=== PATIENT | female | born 1975 | race Caucasian/White ===

== ENCOUNTER 2020-09-23 12:10 | Outpatient (CLI) | payer OTHER, SELFPAY ==
--- NOTE | ~2020-09-23 | MM_ITS ---
EXAMINATION: MM screening segundo BI w jacinto HISTORY: Screening TECHNIQUE: Craniocaudal and mediolateral oblique 3-D tomosynthesis images were obtained and synthetic 2-D images were generated. CAD analysis was submitted and interpreted. COMPARISON: No prior studies for comparison. BREAST PARENCHYMAL COMPOSITION: There are scattered areas of fibroglandular density. FINDINGS: There is no evidence of suspicious mass, calcification, or architectural distortion to sugg est malignancy in either breast. There has been no suspicious interval change. IMPRESSION: 1. No mammographic evidence of malignancy. 2. Recommend routine screening mammography in one year. BI-RADS Category 1: Negative Reviewed, dictated and finalized at location A. 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
== END 2020-09-23 12:11 | disposition home or self-care (01) ==
LOC: ANHIMG 12:13
PROVIDERS: PCP Emergency Medicine; Visit Provider Emergency Medicine
DX: Z12.31 Encounter for screening mammogram for malignant neoplasm of breast (principal)
CPT/HCPCS: 77063; 77067

== ENCOUNTER 2021-06-18 13:15 | Outpatient (CLI) | payer OTHER, SELFPAY ==
--- NOTE | ~2021-06-18 | MMUS_ITS ---
EXAMINATION: MM diagnostic segundo LT w jacinto, US breast LT complete HISTORY: Left breast lump TECHNIQUE: Full field and spot 3-D tomosynthesis images of the left breast were performed and synthet ic 2-D images were generated. CAD analysis was submitted and interpreted. High resolution complete le ft breast ultrasound was performed. COMPARISON: 09/2020 bilateral digital screening mammogram BREAST PARENCHYMAL COMPOSITION: There are scattered areas of fibroglandular density. FINDINGS: MAMMOGRAPHIC FINDINGS: No suspicious mass, architectural distortion, malignant calcification, skin thickening or retraction of the left breast is evident. ULTRASOUND: 3:00 2 cm from nipple: 4.3 x 3.1 x 3.4 mm cyst No suspicious mass or shadowing of the left breast is detected. IMPRESSION: 1. No mammographic evidence of malignancy 2. Routine mammographic screening is recommended. BI-RADS Category 2: Benign finding(s). Reviewed, dictated and finalized at location A. IMPRESSION: 1. No mammographic evidence of malignancy 2. Routine mammographic screening is recommended. BI-RADS Category 2: Benign finding(s).
== END 2021-06-18 13:16 | disposition home or self-care (01) ==
LOC: ANHIMG 13:16
PROVIDERS: PCP Emergency Medicine; Visit Provider Emergency Medicine
DX: N63.20 Unspecified lump in the left breast, unspecified quadrant (principal)
CPT/HCPCS: 76641; 77061; 77065; G0279

== ENCOUNTER 2022-09-20 15:30 | Outpatient (CLI) | payer OTHER, SELFPAY ==
--- NOTE | ~2022-09-20 | MM_ITS ---
EXAMINATION: MM screening segundo BI w jacinto HISTORY: Screening TECHNIQUE: Craniocaudal and mediolateral oblique 3-D tomosynthesis images were obtained and synthetic 2-D images were generated. CAD analysis was submitted and interpreted. COMPARISON: 09/23/2020 BREAST PARENCHYMAL COMPOSITION: Breast composed of scattered areas of fibroglandular density FINDINGS: There is no evidence of suspicious mass, calcification, or architectural distortion to sugg est malignancy in either breast. There has been no suspicious interval change. IMPRESSION: 1. No mammographic evidence of malignancy. 2. Recommend routine screening mammography in one year. BI-RADS Category 1: Negative Reviewed, dictated and finalized at location A.
== END 2022-09-20 15:31 | disposition home or self-care (01) ==
PROVIDERS: PCP Emergency Medicine; Visit Provider Emergency Medicine
DX: Z12.31 Encounter for screening mammogram for malignant neoplasm of breast (principal)
CPT/HCPCS: 77063; 77067

== ENCOUNTER 2023-03-24 03:32 | Day surgery (SDC) | payer OTHER, SELFPAY ==
[2023-03-17 12:14] VITALS: BMI 46.8
--- NOTE | 2023-03-17 12:18 | PC.NURSE ---
Report to the Outpatient Waiting Room, entrance under the green pavilion located off [facility], at time 0615 on date 03/24/23. Planned Procedure Time: 0815. Time changes happen often and if your time is changed the preop area will call you the afternoon before. - You and your visitor will be asked to self-screen and do not enter if you have any COVID symptoms. - A mask is optional within the hospital at this time. Patients may have clear liquids (water, carbonated beverages, clear teas, apple juice) until 3 hours prior to surgery with a maximum of 20 ounces. - No food from midnight until time of surgery Take the following medications with a SIP of water the morning of surgery: NONE DO NOT STOP ANY OF YOUR OTHER PRESCRIPTION MEDICATIONS PRIOR TO SURGERY ?EXCEPT THE FOLLOWING Medications to discontinue per physician: VITAMINS/SUPPLEMENTS Date to take last dose: 03/20/23 Please no make-up, nail honduran, hairspray, perfume, deodorant, or body powder the day of surgery. No jewelry (including any body piercings) or valuables the day of surgery, leave them at home. Please take a shower or bath the night before, or the morning of, surgery with an antibacterial soap. Wear comfortable, loose fitting clothing. - Jewelry must be removed prior to entering the operating room. Rings and piercings that are not removed may be cut off. - The hospital will not accept responsibility for valuables. - Please leave all valuables, including medications, at home the day of surgery. If you are going home after surgery, a licensed driver education instructor must drive you home. - NO public transportation without another adult if you receive anesthesia. - We recommend that an adult stay with you for 24 hours following discharge. - We also recommend that you do not drive, make important decision, drink alcoholic beverages, or take any drugs that were not prescribed by your health care provider for at least 24 hours after your discharge time. Follow any additional instructions given to you from your surgeon. If you or anyone in your household have experienced Covid symptoms in the past week, please notify your surgeon or the nurse liaison at the phone number below for possible testing. Telephone instructions given to PT - ANDREW THOMASON and asked if any additional questions and then verbalized understanding. Patient advised to call surgeon office or pre surgery nurse liaison [phone] if any additional questions.
--- NOTE | 2023-03-22 05:07 | PM.IMHP ---
H&P: HPI History of Present Illness Date/Time: 03/22/23 05:07 Chief Complaint: Neel Narrative: 47 yo NEEL on uro and by history Review of Systems Review of Systems: All systems reviewed & are unremarkable except as noted in HPI and below PMFSH Past Medical History Medical History (Updated 03/22/23 @ 05:08 by Hermilo Abad MD) Depression Social History Social History Smoking status: Never smoker Alcohol intake: current Drinks per week: 2 Substance use: never Substance use type: does not use Living arrangements: with family Spiritual care concerns: No Meds Home Medications and Allergies Home Medications Medication Instructions Recorded Confirmed Type zolmitriptan 2.5 mg tablet See Rx Instructions .Route 09/12/22 03/17/23 Rx .COMPLEX #30 tabs citalopram 20 mg tablet See Rx Instructions .Route 12/26/22 03/17/23 Rx .COMPLEX #90 tabs glucosamine 750 ez-gfvxufhsana-hxq 1 tablet PO DAILY 03/17/23 03/17/23 History no1 644 mg-C 30 mg-dane 1 mg tablet (Osteo Bi-Flex Triple Strength) loratadine 10 mg tablet (Claritin) 10 mg PO HS 03/17/23 03/17/23 History Allergies Allergy/AdvReac Type Severity Reaction Status Date / Time Sulfa (Sulfonamide Allergy Unknown Hives Verified 03/17/23 12:13 Antibiotics) Exam Narrative: NAD Normal brething A+O x3 + urehtral mobility Assessment and Plan Assessment and plan (1) NEEL (stress urinary incontinence, female): Code(s): N39.3 - Stress incontinence (female) (male) Status: Acute Assessment and Plan: urethral sling. risks, benifits, alternaitives discussed
--- NOTE | 2023-03-23 14:03 | P.PNAN_ITS ---
Anes - Initial Pre Proc Eval Procedure: Operation Date: 03/24/23 08:15 Proposed Procedures p Urethral Sling - Hermilo Abad MD Date/Time: 03/23/23 14:03 Surgeon: Hermilo Abad MD Pre Op Diagnosis: stress incontinence Patient Data Age: 47 Gender: F Height: 1.55 m Weight: 112.5 kg Allergies Allergy/AdvReac Type Severity Reaction Status Date / Time Sulfa (Sulfonamide Allergy Unknown Hives Verified 03/17/23 12:13 Antibiotics) Home Medications Medication Instructions Recorded Confirmed Type zolmitriptan 2.5 mg tablet See Rx Instructions .Route 09/12/22 03/17/23 Rx .COMPLEX #30 tabs citalopram 20 mg tablet See Rx Instructions .Route 12/26/22 03/17/23 Rx .COMPLEX #90 tabs glucosamine 750 zf-favkuoyvygp-lmw 1 tablet PO DAILY 03/17/23 03/17/23 History no1 644 mg-C 30 mg-dane 1 mg tablet (Osteo Bi-Flex Triple Strength) loratadine 10 mg tablet (Claritin) 10 mg PO HS 03/17/23 03/17/23 History Patient hx anesthesia problems: none Family hx anesthesia problems: none Results Review: All pre-operative results and documents have been reviewed as part of the pre- operative evaluation. [facility] Past Medical History Medical History (Updated 03/23/23 @ 14:04 by Wyatt Membreno MD) Depression Morbid obesity with BMI of 40.0-44.9, adult NEEL (stress urinary incontinence, female) Social History Social History Smoking status: Never smoker Alcohol intake: current Drinks per week: 2 Substance use: never Substance use type: does not use Living arrangements: with family Spiritual care concerns: No Anes - Eval Final PreProcedure Day of Procedure 03/23/23 14:03 Patient weight: morbidly obese Heart: regular rate and rhythm Lungs: clear to auscultation and normal air movement Airway: Mallampati scale class II Neurological: alert and oriented Last oral intake: >/= 8 hours ASA classification: III Emergent: no Anesthetic plan: proceed Anesthesia type and monitoring: general GIVS and LMA Results Review: All pre-operative results and documents have been reviewed as part of the pre- operative evaluation. Informed Consent: The patient's anesthetic plan and its attendant risks and benefits were discussed with the patient/family/POA. Questions were solicited and answers provided to the satisfaction of the patient/family/POA.
[2023-03-24 06:40] VITALS: BP 140/94; PULSE 84; RESP 16; TEMP 36.4; O2SAT 96
[2023-03-24] MEDS: LACTATED RINGERS 1,000 ML 30 ML IV CONT (06:55)
--- NOTE | 2023-03-24 07:15 | WPDHPUPDATE1 ---
History and Physical Update Update Date/Time: 03/24/23 07:15 History and Physical has been reviewed, including an updated exam of the patient. There are NO changes in the patient's condition. Risks, benefits, and alternatives have been discussed and questions answered. Patient agrees to proceed with procedure.
[2023-03-24] MEDS: ceFAZolin 2 GM/D5W 50 ML 2 GM/50 ML BAG IVPB (08:14)
[2023-03-24] MEDS: KETOROLAC 30 MG/ML VIAL (*BKC) IV PUSH (08:14)
[2023-03-24] MEDS: BUPIVACAINE/EPINEPHRINE 0.25% 50 ML VIAL 10 ML INFILTRATE (08:37)
[2023-03-24 09:03] VITALS: BP 121/58; PULSE 71; RESP 16; O2SAT 95
--- NOTE | 2023-03-24 09:14 | W.PM.PROC2 ---
Procedure Note - Detailed Date of Procedure 03/24/23 Pre-op Diagnosis stress incontinence Post-op Diagnosis Same Procedure Performed mid urethral sling cystoscopy Surgeon Hermilo Abad MD Anesthesia MAC and Local Indications This is a female with confirm stress urinary incontinence. She desires surgical correction. She understands the risks of bleeding, infection, injury to the urinary tract, vaginal mesh extrusion, urinary tract mesh erosion, obstructive voiding requiring a secondary procedure, hip and leg pain, dyspareunia, inability to improve overactive bladder symptoms. She agrees to proceed. Of note there is a small increased risk of failure and complications due to her body habitus Description of Procedure She was correctly identified. Informed consent obtained. She was brought the operating room. She was given appropriate anesthesia. She was given appropriate perioperative antibiotics. A time-out performed. I marked out the site of the inner thigh incisions. I anesthetized the skin and made those incisions. I anesthetized the anterior vaginal wall over the mid urethra. I made a 1 cm incision. I dissected out laterally taking great care not to injure the refilled vaginal wall. I passed the helical trocars. First on the left. Then on the right. I did this from the thigh incision towards the vaginal incision. The sling was connected to the trocars and brought out through the thigh incision. I tensioned the sling appropriately. I cut and the plastic sheaths. I then closed the incision with 2 0 Vicryl. On cystoscopy there is no tumors or surgical artifact. There was no surgical artifact in the urethra. I cut the excess sling material. Close incisions with glue. She was awakened and transferred to the PACU in stable condition. Implants Urethral sling Drains No Packing No Pathology None sent Complications No immediate complications Condition Stable Disposition PACU
[2023-03-24 09:30] VITALS: BP 128/64; PULSE 63; O2SAT 98
[2023-03-24 10:00] VITALS: BP 132/76; PULSE 65
[2023-03-24 10:20] VITALS: BP 126/66; PULSE 64
== END 2023-03-24 10:31 | disposition home or self-care (01) ==
PROVIDERS: PCP Emergency Medicine; Visit Provider Urology
PROC: (CPT 57288; principal; 2023-03-24 08:15)
DX: N39.3 Stress incontinence (female) (male) (principal); F32.A Depression, unspecified; E66.01 Morbid (severe) obesity due to excess calories; Z68.42 Body mass index [BMI] 45.0-49.9, adult
CPT/HCPCS: 57288; C1771; J0131; J0690; J1100; J1885; J2250; J2405; J2704; J3010; J7030; J7120

== ENCOUNTER 2023-12-07 15:34 | Outpatient (CLI) | payer OTHER, SELFPAY ==
--- NOTE | ~2023-12-07 | MM_ITS ---
EXAMINATION: MM screening segundo BI w jacinto HISTORY: Screening TECHNIQUE: Craniocaudal and mediolateral oblique 3-D tomosynthesis images were obtained and synthetic 2-D images were generated. CAD analysis was submitted and interpreted. COMPARISON: Comparison to multiple prior studies sequentially, with oldest reviewed study dated 02/2020. BREAST PARENCHYMAL COMPOSITION: Breast composed of scattered areas of fibroglandular density FINDINGS: There are left periareolar asymmetries. The right breast is stable without evidence for mal ignancy. IMPRESSION: 1. Left periareolar asymmetries. 2. Additional mammographic views and possible breast ultrasound are recommended. BI-RADS Category 0: Incomplete: Needs additional imaging evaluation. Reviewed, dictated and finalized at location A. 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 Left periareolar asymmetries. 2. Additional mammographic views and possible breast ultrasound are recommended . BI-RADS Category 0: Incomplete: Needs additional imaging evaluation.
== END 2023-12-07 15:35 | disposition home or self-care (01) ==
PROVIDERS: PCP Emergency Medicine; Visit Provider Nurse Practitioner
DX: Z12.31 Encounter for screening mammogram for malignant neoplasm of breast (principal); R92.8 Other abnormal and inconclusive findings on diagnostic imaging of breast
CPT/HCPCS: 77063; 77067

== ENCOUNTER 2024-02-19 10:58 | Outpatient (CLI) | payer OTHER, SELFPAY ==
--- NOTE | ~2024-02-19 | MMUS_ITS ---
EXAMINATION: MM diagnostic segundo LT w jacinto, US breast LT limited HISTORY: Follow-up left breast asymmetry TECHNIQUE: Additional 3-D tomosynthesis images of the left breast were performed and synthetic 2-D im ages were generated. CAD analysis was submitted and interpreted. High resolution Limited left breast ultrasound was performed. COMPARISON: Comparison to multiple prior studies sequentially, with oldest reviewed study dated 02/2020. BREAST PARENCHYMAL COMPOSITION: Not dense: There are scattered areas of fibroglandular density. FINDINGS: MAMMOGRAPHIC FINDINGS: There are no suspicious masses, calcifications or architectural distortion in the left breast to sugg est malignancy. Left breast asymmetry is less apparent with spot compression and mediolateral views. ULTRASOUND: Limited left breast ultrasound: At 11:00, 2 cm from the nipple, there is a minimally complicated 3 mm cyst, likely corresponding to the previously identified asymmetry. No suspicious masses to suggest m alignancy. IMPRESSION: 1. No evidence for malignancy in the left breast. Benign finding. 2. Routine yearly screening mammogram and regular clinical breast examination are recommended. BI-RADS Category 2: Benign finding(s). Reviewed, dictated and finalized at location A. IMPRESSION: 1. No evidence for malignancy in the left breast. Benign finding. 2. Routine yearly screening mammogram and regular clinical breast examination a re recommended. BI-RADS Category 2: Benign finding(s).
== END 2024-02-19 10:59 | disposition home or self-care (01) ==
PROVIDERS: PCP Emergency Medicine; Visit Provider Nurse Practitioner
DX: R92.2 Inconclusive mammogram (principal)
CPT/HCPCS: 76642; 77061; 77065; G0279

== ENCOUNTER 2025-04-07 15:05 | Outpatient (CLI) | payer OTHER, SELFPAY ==
--- NOTE | ~2025-04-07 | MM_ITS ---
EXAMINATION: MM screening segundo BI w jacinto HISTORY: Screening TECHNIQUE: Craniocaudal and mediolateral oblique 3-D tomosynthesis images were obtained and synthetic 2-D images were generated. CAD analysis was submitted and interpreted. COMPARISON: Comparison to multiple prior studies sequentially, with oldest reviewed study dated 02/2020. BREAST PARENCHYMAL COMPOSITION: Not dense: There are scattered areas of fibroglandular density. FINDINGS: There is no evidence of suspicious mass, calcification, or architectural distortion to sugg est malignancy in either breast. There has been no suspicious interval change. IMPRESSION: 1. No mammographic evidence of malignancy. 2. Recommend routine screening mammography in one year. BI-RADS Category 1: Negative Reviewed, dictated and finalized at location B.
--- OUTSIDE RECORDS SUMMARY | 2025-04-07 15:09 | XMS_ITS | Referral Summary ---
Author Organization [address] Address [address] [place] [id number] Care Team Providers Care Home Care Physical Therapist Name Role Phone Unknown, Notinfile Primary Care Provider Unavail able Encounters Date Type Department Care Team Description 03/04/2025 4:37 PM CDT - 03/04/2025 11:59 PM CDT Hospital Encounter [facility] ([facility]) [address] [place] [id number] Discharge Disposition: Discharge to home or self care 03/04/2025 4:36 PM CDT - 03/04/2025 11:59 PM CDT Hospital Encounter [facility] ([facility]) [address] [place] [id number] Discharge Disposition: Discharge to home or self care 03/04/2025 4:30 PM CDT - 03/04/2025 11:59 PM CDT Hospital Encounter [facility] ([facility]) [address] [place] [id number] Discharge Disposition: Discharge to home or self care 03/04/2025 11:15 AM CDT Ancillary Procedure [facility] [address] [place] [address] [address] [place] [phone] Chronic right shoulder pain 03/04/2025 10:40 AM CDT Office Visit [facility] [address] [place] [address] [address] [place] [phone] Charis Cody MD Chronic right shoulder pain (Primary Dx); Tendinopathy of right rotator cuff from Last 3 Months Allergies Active Allergy Reactions Criticality Noted Date Comments Sulfa (Sulfonamide Antibiotics) Urticaria Medium 10/20 Medications citalopram (CeleXA) 20 mg tablet Take 1 tablet (20 mg total) by mouth nightly Active ZOLMitriptan (ZOMIG) 2.5 mg tablet 08/22/2019 Active cetirizine (ZyrTEC) 10 mg tablet Take 1 tablet (10 mg total) by mouth nightly Active Active Problems No known active problems Social History Tobacco Use Types Packs/Day Years Used Date Smoking Tobacco: Never Passive Smoke Exposure: Past Smokeless Tobacco: Never Tobacco Cessation:Counseling Given: Not Answered Comments Unknown Sex and Gender Information Value Date Recorded Sex Assigned at Not on file Legal Sex Female 11:33 AM CDT Gender Identity Female 02/28/2025 12:09 PM CDT Sexual Orientation Straight 02/28/2025 12 :09 PM CDT Last Filed Vital Signs Vital Sign Reading Time Taken Comments Blood Pressure 119/79 06/16/2024 6:06 PM CDT Pulse 76 06/16/2024 6:06 PM CDT Temperature 36.9 C (98.5 F) 06/16/2024 6:06 PM CDT Respiratory Rate 20 06/16/2024 6:06 PM CDT Oxygen Saturation 98% 06/16/2024 6:06 PM CDT Inhaled Oxygen Concentration - - Weight 83.1 kg (183 lb 4.8 oz) 06/16/2024 6:06 P M CDT Height 165.1 cm (5' 5 ) 06/16/2024 6:06 PM CDT Body Mass Index 30.5 06/16/2024 6:06 PM CDT Plan of Treatment Not on file Procedures Procedure Name Priority Date/Time Associated Diagnosis Comments XR TRANSFER OF OUTSIDE FILMS Routine 03/04/2025 4:37 PM CDT IR OUTSIDE REFERENCE Routine 03/04/2025 4:36 PM CDT MSK MR OUTSIDE REFERENCE Routine 03/04/2025 4:30 PM CDT POCUS LIMITED EXTREMITY Schedule Routine, Read Routine (OP Routine) 03/04/2025 11:12 AM CDT Chronic right shoulder pain from Last 3 Months Results * XR Outside Reference (03/04/2025 4:37 PM CDT) Impressions RAD_PACS[facility] - 03/04/2025 4:37 PM CDT These images are for Reference purposes only and have not been reviewed by [facility]. There will be no report generated by a [facility] Radiologist. Narrative [facility]_PACS[facility] - 03/04/2025 4:37 PM CDT EXAMINATION: Images For Reference Purposes Only us Charis Cody MD IMG XR PROCEDURES Final Result Performing Organization Address [facility] de Phone Number [email or web address] * IR Outside Reference (03/04/2025 4:36 PM CDT) Impressions RAD_PACS[facility] - 03/04/2025 4:36 PM CDT These images are for Reference purposes only and have not been reviewed by [facility]. There will be no report generated by a [facility] Radiologist. Narrative RAD_PACS_[facility] - 03/04/2025 4:36 PM CDT EXAMINATION: Images For Reference Purposes Only us Charis Cody MD IMG IR PROCEDURES Final Result Performing Organization Address [facility] de Phone Number RAD_[email or web address] * MSK MR Outside Reference (03/04/2025 4:30 PM CDT) Impressions RAD_PACS[facility] - 03/04/2025 4:30 PM CDT These images are for Reference purposes only and have not been reviewed by [facility]. There will be no report generated by a [facility] Radiologist. Narrative RAD_PACS_[facility] - 03/04/2025 4:30 PM CDT EXAMINATION: Images For Reference Purposes Only us Charis Cody MD IMG MRI PROCEDURES Final Result Performing Organization Address City/[facility]/ZIP Co de Phone Number [facility] * POCUS LIMITED EXTREMITY (03/04/2025 11:12 AM CDT) Narrative [facility]ACS_[facility] - 03/04/2025 11:12 AM CDT This procedure was performed and interpreted by the provider. Please refer to the provider's procedure/OR operative note for results. us Mariam Perez MD POCUS ORDERABLES Sowmya l Result Performing Organization Address [facility] Co de Phone Number RAD_PACS_P[facility]US[facility] from Last 3 Months Insurance [employer] OPEN ACCESS [employer] ACCESS Care Teams Home Care Physical Therapist Relationship Specialty Start Date End Date Unknown, Notinfile PCP - General 06/16/24
--- OUTSIDE RECORDS SUMMARY | 2025-04-07 15:09 | XMS_ITS | Clinical Summary ---
Author Organization [facility] MessageMe Address [address] [facility] [place] [address] Care Team Providers Care Weight Reduction Specialist Name Role Phone Dat Bran MD Primary Care Provider [phone] Yuliet Flores MD Unavailable [phone] Source Comments [facility],non-owned Affiliates and Associated Physician Practices is amultiple site organization consisting of ambulatory clinics and hospital sitesin [place], [place], [place] and [place]. This disclosure is being madepursuant to the Care Everywhere program and may not contain all information available regarding this patient. Last updated 18.[facility] MessageMe Allergies Active Allergy Reactions Criticality Noted Date Comments Sulfa Drugs Urticaria Medium 10/30/2019 Medications * Be aware that medications may not be up to date on this document. Alwaysverify current medications with the patient. ZOLMitriptan (ZOMIG) 2.5 MG tablet Take 1 (one) tablet by mouth once as needed for Migraine 1 9 Active citalopram (CELEXA) 20 MG tablet Take 1 (one) tablet by mouth at bedtime Active albuterol HFA (PROVENTIL; VENTOLIN; PROAIR) 108 (90 Base) MCG/ACT inhalerIndicatio ns:Acute bronchitis, unspecified organism Inhale 2 (two) puffs by mouth every 6 hours as needed for Wheezing or Cough 1 g 1 Active Additional Information Patient not taking.Reported on 06/28/2024 cetirizine (ZyrTEC) 10 MG tablet Take 1 (one) tablet by mouth at bedtime Active minoxidil (Loniten) 2.5 MG tablet Take 0.5 (one-half) tablet by mouth once daily 4 Active Active Problems Problem Noted Date Diagnosed Date S/P laparoscopic sleeve gastrectomy 06/26/2023 Social History Tobacco Use Types Packs/Day Years Used Date Smoking Tobacco: Never Smokeless Tobacco: Never Tobacco Cessation:Counseling Given: Not Answered Alcohol Use Standard Drinks/Week Comments Yes 4 (1 standard drink = 0.6 oz pur e alcohol) socially AUDIT-C Answer Date Recorded Q1: How often do you have a drink containing alc ohol? Monthly or less 06/26/2023 Q2: How many drinks containi ng alcohol do you have on a typical day when you are drinking? 1 or 2 06/26/2023 Q3: How often do you have si x or more drinks on one occasion? Never 06/26/2023 Overall Financial Resource Strain (CARDIA) Answe r Date Recorded How hard is it for you to pa y for the very basics like food, housing, medical care, and heating? Not hard at all 06/26/2023 [facility] - Occupational Stress Questionnaire Answer Date Recorded Do you feel stress - tense, restless, nervous, or anxious, or unable to sleep at night because your mind is troubled all the time - these days? Not at all 06/26/2023 Hunger Vital Sign Answer Date Recorded Within the past 12 months, y ou worried that your food would run out before you got the money to buy more. Never true 06/26/20 23 Within the past 12 months, t he food you bought just didn't last and you didn't have money to get more. Never true 06/26/2023 PRAPARE - Transportation Answer Date Re corded In the past 12 months, has l ack of transportation kept you from medical appointments or from getting medications? No 05/2023 In the past 12 months, has l ack of transportation kept you from meetings, work, or from getting things needed for daily living? No 06/26/2023 Housing Stability Vital Sign Answer Eddie e Recorded In the last 12 months, was t here a time when you were not able to pay the mortgage or rent on time? No 06/26/2023 In the last 12 months, how many places have you lived? 1 06/26/2023 In the last 12 months, was t here a time when you did not have a steady place to sleep or slept in a alf (including now)? No 06/26/2023 Comments No Sex and Gender Information Value Date Recorded Sex Assigned at Female 02/26/2021 10:24 AM CDT Legal Sex Female 8:08 AM FITNESS PLAN COORDINATOR Gender Identity Female 02/26/2021 10:24 AM CDT Sexual Orientation Not on file Last Filed Vital Signs Vital Sign Reading Time Taken Comments Blood Pressure 109/74 06/28/2024 11:25 AM CDT Pulse 73 06/28/2024 11:25 AM CDT Temperature 36 C (96.8 F) 06/28/2024 11:25 AM CDT Respiratory Rate 14 06/28/2024 11:25 AM CDT Oxygen Saturation 99% 06/28/2024 11:25 AM CDT Inhaled Oxygen Concentration - - Weight 84.4 kg (186 lb) 06/28/2024 11:25 AM CDT Height 154.9 cm (5' 0.98 ) 06/28/2024 11:25 AM C DT Body Mass Index 35.17 06/28/2024 11:25 AM CDT Plan of Treatment Upcoming Encounters Date Type Department Care Team (Late st Contact Info) Description 06/27/2025 11:30 AM CDT Office Visit [facility] [address] [facility] [address] [place] [address] Lorrie Delaney, SENIOR TEST ANALYST-MARBLE INSTALLER [address] [facility] [address] [place] [address] Health Maintenance Due Date Last Done Comments COLOGUARD (AGES 45-75) - COLON CA SCREENING 1974 COLON MONITORING 1974 COLONOSCOPY - COLON CA SCREENING 1974 CT COLONOGRAPHY - COLON CA SCREENING 1974 Colorectal Cancer Screening 1974 FIT - COLON CA SCREENING 1974 FLEX SIG - COLON CA SCREENING 1974 LIPID TESTING 1974 MAMMOGRAM 1974 HIV SCREENING 1989 HEPATITIS C SCREENING 11/03/1992 DTAP/TDAP/TD VACCINES (1 - Tdap) 1993 HEPATITIS B VACCINE (1 of 3 - 19+ 3-dose series) 1993 COVID-19 VACCINE (3 - 2023- season) 2024 04/12/2021, 03/22/2021 PNEUMOCOCCAL VACCINE 50+ (1 of 1 - PCV) 2024 ZOSTER VACCINE (1 of 2) 2024 DEPRESSION SCREENING 11/20/2024 INFLUENZA VACCINE (Season Ended) 2025 10/08/2020 (Done Outside Per Patient), 08/20/2017 PAP SMEAR 10/17/2026 10/17/2023, 01/22/2021 SCREENING FOR DIABETES 06/25/2027 , 06/27/2023, 06/26/2023, Additional history exists HIB VACCINE Aged Out No longer eligi ble based on patient's age to complete this topic HPV VACCINE Aged Out No longer eligi ble based on patient's age to complete this topic MENINGOCOCCAL (Group B) VACCINE SHARED DECISION-MAKING Aged Out No longer eligible based on patient's age to complete this topic MENINGOCOCCAL GROUPS A/C/Y/W VACCINE Aged Out No longer eligible based on patient's age to complete this topic Procedures Procedure Name Priority Date/Time Associated Diagnosis Comments COMPREHENSIVE METABOLIC PANEL Routine 06/25/2024 9:30 AM CDT Morbid obesity Bariatric surgery status Vitamin deficiency Vitamin D deficiency from Last 3 Months or Most Recently Relevant to Health Maintenance Results * COMPREHENSIVE METABOLIC PANEL (06/25/2024 9:30 AM CDT) Glucose 91 70 - 99 mg/dL [facility] INSURANCE BILL BUN 19 6 - 24 mg/dL [facility] INSURANCE BILL Creatinine 0.86 0.57 - 1.00 mg/dL [facility] INSURANCE BILL eGFR by CKD-EPI 83 >59 mL/min/1.7 3 [facility] INSURANCE BILL BUN/Creatinine Ratio 22 9 - 23 [facility] INSURANCE BILL Sodium 139 134 - 144 mmol/L [facility] INSURANCE BILL Potassium 4.5 3.5 - 5.2 mmol/L [facility] INSURANCE BILL Chloride 103 96 - 106 mmol/L [facility] INSURANCE BILL CO2 25 20 - 29 mmol/L [facility] INSURANCE BILL Calcium 9.6 8.7 - 10.2 mg/dL [facility] INSURANCE BILL Protein Total 6.5 6.0 - 8.5 g/dL [facility] INSURANCE BILL Albumin 3.9 3.9 - 4.9 g/dL [facility] INSURANCE BILL Globulin Total 2.6 1.5 - 4.5 g/dL [facility] INSURANCE BILL Bilirubin Total 0.3 0.0 - 1.2 mg/dL [facility] INSURANCE BILL Alkaline Phosphatase 101 44 - 121 IU/L [facility] INSURANCE BILL AST 23 0 - 40 IU/L [facility] INSURANCE BILL ALT 19 0 - 32 IU/L [facility] INSURANCE BILL Comment:FASTING Blood BLOOD SPECIMEN / Unknown 06/25/2024 9:30 AM CDT 06/25/2024 Narrative Resulting Agency Comment Lab Testing performed at: [facility] [address] [facility] [id number] Micheline Marroquin SENIOR TEST ANALYST-MARBLE INSTALLER LAB - CHEMISTRY NELY MORAN Final Result [facility] INSURANCE BILL [address] [place] [address] from Last 3 Months or Most Recently Relevant to Health Maintenance Insurance [facility] Advance Directives * Full Code (Latest Code Status on File) Date Activated Date Inactivated Comments 06/26/2023 2:00 PM 06/27/2023 3:50 PM Care Teams Weight Reduction Specialist Relationship Specialty Start Date End Date Dat Bran MD [facility] [address] [place] [address] PCP - General Internal Medicine 10/30/19 [place] [address] [address] [facility] [address] [place] [address] Orthopedic Surgery 10/30/19
--- OUTSIDE RECORDS SUMMARY | 2025-04-07 15:09 | XMS_ITS | Data Portability ---
Author Organization [place] - [facility], Telehealth Address [address], [place] [address] Assessment Encounter Date Assessment Date Assessment LastModified by Organization Details LastModified Time 10/04/2016 10/04/2016 right plantar fasciitis -for the next 6-8 weeks -ice twice a day for 15 minutes -stretch the back of the legs twice a day for a minute on each side. Do this for the rest of your life -wearing a rigid bottomed shoe (jaciel, birkenstock, dansko) -getting a super feet short insert for your boots -no barefoot (go shopping!!!) -roll the foot over a ball if you have extra time -rate your pain in 6 weeks and return if no improvement [email or web address] Not available 10/05/2016 02:06:33 Plan of Treatment Reminders Order Date Submit Date Provider Last Modified By Organization Details Last Modified Time Details Appointments None record ed. Lab None record ed. Referral None record ed. Procedures None record ed. Surgeries None record ed. Imaging None record ed. Medication Orders None record ed. Patient TargetsNo targets recorded. Patient Instructions Encounter Date Encounter Id Patient Instructions Last Modified By Organization Details Last Modified Time 10/04/2016 [id number] -for the next 6- 8 weeks -ice twice a day for 15 minutes -stretch the back of the legs twice a day for a minute on each side. Do this for the rest of your life -wearing a rigid bottomed shoe (jacile, birkenstock, dansko) -getting a super feet short insert for your boots -no barefoot (go shopping!!!) -roll the foot over a ball if you have extra time -rate your pain in 6 weeks and return if no improvement sandal brands to try: yayako sanita charlinekenstock Spenco flips SOLE flips vionic montrail SOLE flips ABEO brand at the [employer] Not available 10/04/2016 21:58:15 Reason for Referral None Reported. Medical Equipment None Reported. Allergies Allergen ID Allergen Name Allergen Category Reaction Reaction Severity Criticality Documentation Date Start Date Code Code System Note Provider Name and Address Organization Details Recorded Time 7846 Substance with sulfonami de structure and antibacte rial mechanism of action (substanc e) medicatio n Not available Not available Not available 10/04/2016 [id number] SNOMED Annabella Bishop DPM [address], [place], [address] [facility] 6 21:54:25 Medications Name Sig Start Date Stop Date Status Note LastModified by Organization Details LastModified Time trazodone 50 mg tablet active Not Available Not Available No t Available meloxicam 7.5 mg tablet active Not Available Not Available No t Available zolmitriptan 2.5 mg tablet active Not Available Not Availabl e Not Available citalopram 20 mg tablet active Not Available Not Available No t Available naproxen 500 mg tablet active Not Available Not Available No t Available Vitals None Recorded Social History Question Answer Notes LastModified by Organizat ion Details LastModified Time Tobacco Smoking Status Never Smoker Not Available [facility] 09/03/2020 03:15:23 Marital Status Informatio n not available 10/04/2016 Sex: Unknown Functional Status Question Answer Note LastModified by Organizat ion Details LastModified Time What is your level of alcohol consumption? social [id number] Information not available 09/03/2020 What is your occupation? [employer] [id number] Information not available 09/03/2020 Mental Status None recorded. Family History Nothing Reported. Medical History No medical history recorded. Gynecological HistoryNo gynecological history recorded. Obstetrics History GPAL:G 0 P 0 0 0 0 Past Encounters Encounter ID Performer Location Encounter Start Date Encounter Closed Date Diagnosis/Indication Diagnosis SNOMED-CT Code Diagnosis ICD10 Code Diagnosis Note [id number] Annabella Bishop DPM [facility] [address] [place] [address] 10/04/2016 19:37:45 10/06/2016 10:41:37 Plantar fasciitis 455725688 M72.2 Health Concerns Section Related Observation LastModified by Organization Detai ls LastModified Time None Recorded Concern Status LastModified by Organization Details LastModified Time None Recorded Advance Directives Directive None Recorded Payers Encounter Date Sequence Insurance Name Policy Number Policy Maloney Covered Member ID Maloney Member ID Guarantor Name 10/04/2016 1 [employer] [facility] PL[facility] [id number] Blanca Lawton [id number] Blanca Lawton Notes Date Note Type Note Provider Name and Address Organization Details Recorded Time 10/04/2016 text/html I met Anne 2012 after injuring the left heel after jumping in a pool.She has since recovered from this injury and now has direct plantar right heel pain.No trauma.present for several monthsShe obtained an xray at work recently and it is negative.she wears danskos at work, but during the summer, flip flops, barefoot, and no shoes at home.She recently started wearing her night splint for pain relief Annabella Bihsop, MAXIMILIANO [address] [place], [address], [facility] - [facility] 10/05/2016 02:06:55 OBGyn Episode No OBEpisode recorded.
--- OUTSIDE RECORDS SUMMARY | 2025-04-07 15:09 | XMS_ITS | Data Portability ---
Author Organization [facility] Address [address] [place] [address] Care Team Providers Care County Bailiff Name Role Phone CHRISTAKUSHAL JOSE Primary Care Provider Assessment Encounter Date Assessment Date Assessment LastModified by Organization Details LastModified Time 01/22/2021 01/22/2021 Annual gynecological exam performed. Patient will come back in a year unless there are new symptoms. unable to feel mass, if us neg, no need for follow up unless changes. Suggest Calcium with Vitamin D if not eating in diet. Patient advised to get annual flu shot. Recommend yearly physicals and preform monthly breast exams. Genetic testing is available for patients with family history of cancer. Engage in safe sexual practices, use condoms. Encouraged to have daily exercise. Avoid tobacco and illicit drugs, moderation of alcohol. If BMI greater than 25 dietary consult advised. If you have any questions please call or email. Additional precautionary measures were taken to minimize potential exposure to the Covid-19 virus during this patient s visit, including available hand photo stylist upon arrive, temperature check and being asked a series of screening questions. All staff wore face coverings during this encounter, as well as provided additional cleaning and sanitizing of all surfaces, including countertops, pens, chairs, door handles, light switches, etc, prior to and following the patient s visit. Not available 01/22/2021 14:10:59 10/07/2022 10/07/2022 Annual gynecological exam performed. Patient will come back in a year unless there are new symptoms. Suggest Calcium with Vitamin D if not eating in diet. Patient advised to get annual flu shot. Recommend yearly physicals and preform monthly breast exams. Genetic testing is available for patients with family history of cancer. Engage in safe sexual practices, use condoms. Encouraged to have daily exercise. Avoid tobacco and illicit drugs, moderation of alcohol. If BMI greater than 25 dietary consult advised. If you have any questions please call or email. [email or web address] Not available 10/07/2022 16:44:55 10/17/2023 10/17/2023 Annual gynecological exam performed. Patient will come back in a year unless there are new symptoms. Not available 10/17/2023 09:56:02 10/21/2024 10/21/2024 Annual gynecological exam performed. Patient will come back in a year unless there are new symptoms. [email or web address] Not available 10/21/2024 09:58:45 Plan of Treatment Reminders Order Date Submit Date Provider Last Modified By Organization Details Last Modified Time Details Appointments None recorded. Lab None recorded. Referral None recorded. Procedures None recorded. Surgeries None recorded. Imaging MAMMO, screening, digital, bilateral 2023 024 [facility], [address], [place], [address], 4 04:12:17 MAMMO, screening, digital, bilateral 2022 023 [facility], [address], [place], [address], 4 15:00:59 Medication Orders None recorded. Patient TargetsNo targets recorded. Patient InstructionsNo instructions recorded. Reason for Referral None Reported. Results Created Date Observation Date Name Description Value Unit Range Abnormal Flag Note LastModifiedBy Organization Detail LastModifiedTime 01/23/20 21 01/22/2021 pap, IG Pap test SEE RESULT S BELOW CASE REPOR T: Cytol ogy Gynec ologi iqra Repor t Case: [id number] Autho verna clifton Provi keri: Stacy Flores NP Colle cted: 01/22 1628 Order ing Locat ion: [place] [facility] Recei matilda: 01/23 0409 First Scree n: Beech im, Mariam , CT Speci men: Scree malou Pap - Image d, Cervi x STATE MENT OF ADEQU ACY: Satis facto ry for evalu ation Trans forma tion zone compo nent absen t FINAL DIAGN OSIS: Negat kd for Squam ous Intra epith elial Lesio niharika Elect [place] bernard elaina d by Mariam William CT on at 8:47 AM ----- ----- ----- ----- ----- ----- ----- ----- ----- ----- ----- ----- ----- ----- ----- ----- ----- ----- - HPV RESUL TS: HPV mRNA E6/E7 : No HPV mRNA Detec bipin NOTE: This high risk HPV mRNA assay detec ts fourt een high- risk HPV types (16, 18, 31, 33, 35, 39, 45, 51, 52, 56, 58, 59, 66, 68) witho ut diffe renti ation . CHART ABLE COMME NT: Note: This speci men was revie wed by a Cytot echno logis t and/o r Patho logis t (as indic ated in this repor t) after evalu ation using the Thinp rep Imagi ng Syste m. CLINI IQRA INFOR MATIO N: Menst rual Statu s: LMP (if appli cable ): Clini iqra Histo ry/Pr eviou s Pap: Type of Neopl yue (if appli cable ): Other Histo ry: Hormo jamin (if appli cable ): PAP EDUCA YFN L NOTE: The Pap Test is a scree malou test with an inher ent false negat kd rate. Liqui d-bas e sampl ing may decre ase, but will not elimi kylie, false negat kd resul ts. A negat kd resul t does not precl ude the prese nce and/o r devel opmen t of disea se, since the prese nce of abnor mal cells in the sampl e depen ds on the locat ion of the lesio n and sampl ing techn ique. Aicha nued regul ar scree malou is the best metho d of cance r preve ntion . If repor bipin cytol ogic findi ng do not corre late with physi iqra and/o r histo rical findi ngs, furth er inves tigat ion is recom eulalia d, as clini tim tinajero nted. Not Available [facility] (Lab) [address] [place], [address], 01/26/2021 09:50:24 10/07/20 22 10/07/2022 CULTU RE: URINE result report SEE RESULT S BELOW abnormal Test: Cultu re: Urine Speci men Sourc e: Urine Voide d Speci men Type: Urine Speci men Date: 10/07 4:42 PM Resul t Date: 10/10 9:37 AM Resul t Statu s: Final resul t Abnor mal: Yes Gilmar jane Lab: [facility] [address] [facility] [address] Tel: CULTU RE ----- ----- ----- --- >100, 000 CFU/m l Citro bacte r koser i ([facility]) 75,00 0-100 ,000 CFU/m l Esche rustam a coli ([facility]) SUSCE PTIBI LITY ----- ----- ----- --- Citro bacte r koser i METHO D MARISA ----- ----- ----- ----- ----- ---- ----- ----- ----- ----- --- AMIKA SUZE <=16 ug/mL Susce ptibl e AMPIC ILLIN >16 ug/mL Resis tant AMPIC ILLIN /SULB ACTAM <=8 ug/mL Susce ptibl e AZTRE ONAM <=4 ug/mL Susce ptibl e CEFAZ ANTHONY CEFEP TIFFANIE <=4 ug/mL Susce ptibl e CEFOX ITIN CEFTA ZIDIM E <=1 ug/mL Susce ptibl e CEFTR IAXON E <=1 ug/mL Susce ptibl e CIPRO FLOXA SUZE <=1 ug/mL Susce ptibl e GENTA MICIN <=4 ug/mL Susce ptibl e LEVOF LOXAC IN <=2 ug/mL Susce ptibl e MEROP ENEM <=1 ug/mL Susce ptibl e NITRO FURAN TOIN <=32 ug/mL Susce ptibl e PIPER ACILL IN/TA ZOBAC LAURA <=16 ug/mL Susce ptibl e TOBRA MYCIN <=4 ug/mL Susce ptibl e TRIME THOPR IM/LATHAM LFAME THOXA ZOLE <=2 ug/mL Susce ptibl e Esche rustam a coli METHO D MARISA ----- ----- ----- ----- ----- ---- ----- ----- ----- ----- --- AMIKA SUZE <=16 ug/mL Susce ptibl e AMPIC ILLIN <=8 ug/mL Susce ptibl e AMPIC ILLIN /SULB ACTAM <=8 ug/mL Susce ptibl e AZTRE ONAM <=4 ug/mL Susce ptibl e CEFAZ ANTHONY <=8 ug/mL Susce ptibl e CEFEP TIFFANIE <=4 ug/mL Susce ptibl e CEFOX ITIN <=8 ug/mL Susce ptibl e CEFTA ZIDIM E <=1 ug/mL Susce ptibl e CEFTR IAXON E <=1 ug/mL Susce ptibl e CIPRO FLOXA SUZE <=1 ug/mL Susce ptibl e GENTA MICIN <=4 ug/mL Susce ptibl e LEVOF LOXAC IN <=2 ug/mL Susce ptibl e MEROP ENEM <=1 ug/mL Susce ptibl e NITRO FURAN TOIN <=32 ug/mL Susce ptibl e PIPER ACILL IN/TA ZOBAC LAURA <=16 ug/mL Susce ptibl e TOBRA MYCIN <=4 ug/mL Susce ptibl e TRIME THOPR IM/LATHAM LFAME THOXA ZOLE <=2 ug/mL Susce ptibl e Not Available [facility] (Lab) [address], [place], [address], 10/10/2022 11:01:08 10/17/20 23 10/17/2023 IMAGE GUIDE D PAP AND HPV REGAR DLESS image guided Pap, HPV regardless of Pap result SEE RESULT S BELOW CASE REPOR T: Cytol ogy Gynec ologi iqra Repor t Case: [id number] Autho rirod g Provi keri: Monalisa Cortes, KETAN Colle cted: 10/17 1547 Order ing Locat ion: [place] Patho logy Recei matilda: 10/18 0418 First Scree n: Madhu buitrago ak, Sivil ay, CT Rescr een: Jose Tineo am, CT Speci men: Kassie westfall Pap - Image d, Cervi x STATE MENT OF ADEQU ACY: Satis facto ry for evalu ation Trans forma tion zone compo nent absen t The absen ce of an endoc ervic al compo nent was confi rmed by an addit ionchloe sheehan. FINAL DIAGN OSIS: Negat kd for Intra epith elial Lesio n or Burak newton (NIL) . Lyudmila delaney d by Jose Tineo am, CT on 2022 at 6:48 AM ----- ----- ----- ----- ----- ----- ----- ----- ----- ----- ----- ----- ----- ----- ----- ----- ----- ---- HPV RESUL TS: HPV mRNA E6/E7 : No HPV mRNA Detec bipin NOTE: This high risk HPV mRNA assay detec ts fourt een high- risk HPV types (16, 18, 31, 33, 35, 39, 45, 51, 52, 56, 58, 59, 66, 68) witho ut diffe renti ation . COMME NT: This speci men was revie wed by a Cytot echno logis t and/o r Patho logis t (as indic ated in this repor t) after evalu ation using the Thinp rep Imagi ng Syste m. CLINI IQRA INFOR MATIO N: Menst rual Statu s: LMP (if appli cable ): Clini iqra Histo ry/Pr eviou s Pap: Type of Neopl yue (if appli cable ): Signi fican t Clini iqra Findi ngs: Other Histo ry: Hormo jamin (if appli cable ): PAP EDUCA YFN L NOTE: The Pap Test is a scree malou test with an inher ent false negat kd rate. Liqui d-bas ed sampl ing may decre ase, but will not elimi kylie, false negat kd resul ts. A negat kd resul t does not precl ude the prese nce and/o r devel opmen t of disea se, since the prese nce of abnor mal cells in the sampl e depen ds on the locat ion of the lesio n and sampl ing techn ique. Aicha nued regul ar scree malou is the best metho d of cance r preve ntion . If repor bipin cytol ogic findi ng do not corre late with physi iqra and/o r histo rical findi ngs, furth er inves tigat ion is recom eulalia d, as clini tim tinajero nted. Not Available [facility] (Lab) [address] [facility], [place], [address], 10/20/2023 07:51:56 12/28/19 24 12/07/2023 MAMMO , scree malou, digit al, bilat eral No observ ation record ed. [facility] [place] [address] [address] [facility] [address], [place], [address], 12/28/2023 15:14:42 02/19/20 24 02/19/2024 MAMMO , diagn ostic , unila teral No observ ation record ed. [email or web address] [address], [place], [address], 02/20/2024 16:15:13 02/23/20 24 02/19/2024 MAMMO , diagn ostic , unila teral No observ ation record ed. [address], [place], [address], 02/25/2025 16:54:34 Result Notes None recorded. Problems Name Problem SNOMED Code Status Onset Date Resolution Date Notes Provider Name and Address Organization Details Recorded Time Migraine 88190313 Active 2023 Cat kearns [facility] 4 10:00:14 History of sleeve gastrectom y 9038196559019 07 Active 2023 Cat kearns [facility] 4 10:00:38 Problem Notes None recorded. Procedures Surgical History Date Name Laterality Status Provider Name and Address Organization Details Recorded Time 4 Date of Last Pap Smear completed Cat Moore [facility] 10/21/2024 10:01:04 3 Bariatric Surgery completed [facility] 10/17/2023 10:07:10 3 insertion of single incision mid-urethral mini-sling completed [facility] 10/17/2023 10:07:02 2 Date of Last Mammogram completed Cat Moore [facility] 10/07/2022 16:37:51 9 section completed Cat Moore [facility] 01/23/2021 10:12:15 6 section completed Cat Moore [facility] 01/23/2021 10:12:10 Imaging Results Imaging Date Name Status [facility]Modified by [facility] Details LastModified Time 12/07/2023 MAMMO, screening, digital, bilateral completed [email or web address] [place] [id number] [facility] [address] [place] [address], [address], 12/28/2023 15:14:42 02/19/2024 MAMMO, diagnostic, unilateral completed [email or web address] [facility] [address] [facility] [address], [address], 02/20/2024 16:15:13 02/19/2024 MAMMO, diagnostic, unilateral completed [email or web address] [place] [id number] [facility] [address], [address], 02/25/2025 16:54:34 Procedure Notes None recorded. Medical Equipment None Reported. Allergies Allergen ID Allergen Name Allergen Category Reaction Reaction Severity Criticality Documentation Date Start Date Code Code System Note Provider Name and Address Organization Details Recorded Time 20890 Substance with sulfonami de structure and antibacte rial mechanism of action (substanc e) medicatio n hives Not available Not available 10/17/2023 02373 8003 [facility]ED [facility]23 Medications Name Sig Start Date Stop Date Status Note LastModified by Organization Details LastModified Time cyclobenzap rine 10 mg tablet TAKE 1 TABLET BY MOUTH THREE TIMES DAILY 10/17 completed Not Available Not Available Not Available oxybutynin chloride ER 10 mg tablet,exte nded release 24 hr TAKE 1 TABLET BY MOUTH ONCE DAILY 10/17 completed Not Available Not Available Not Available azithromyci n 250 mg tablet TAKE 2 TABLETS BY MOUTH ON DAY 1, AND THEN TAKE 1 TABLET BY MOUTH ONCE A DAY ON DAY 2 THROUGH DAY 5 10/17 completed Not Available Not Available Not Available hydrocodone 5 mg-acetamin ophen 325 mg tablet TAKE 1 TABLET BY MOUTH EVERY 6 HOURS NEEDED FOR PAIN 10/17 completed Not Available Not Available Not Available prednisone 20 mg tablet TAKE 1 TABLET BY MOUTH TWICE DAILY FOR 5 DAYS 10/17 completed Not Available Not Available Not Available oxycodone 5 mg/5 mL oral solution 10/17 completed Not Available Not Available Not Available ciprofloxac in 500 mg tablet Take 1 tablet every 12 hours by oral route for 7 days. 10/17 completed Not Available Not Available Not Available minoxidil 2.5 mg tablet TAKE 1/2 (ONE-HALF ) TABLET BY MOUTH ONCE DAILY active Not Available Not Available No t Available zolmitripta n 2.5 mg tablet TAKE 1 TABLET BY MOUTH ONCE. IF HEADACHE RETURNS, MAY REPEAT DOSE IN TWO HOURS. NOT TO EXCEED 10MG (4 TABLETS) IN 24 HOURS active Not Available Not Available No t Available citalopram 20 mg tablet active Not Available Not Available Not Available biotin 10,000 mcg capsule active Not Available Not Available Not Available hyoscyamine 0.125 mg sublingual tablet DISSOLVE 1 TABLET IN MOUTH EVERY 4 HOURS NEEDED FOR SPASMS 10/17 completed Not Available Not Available Not Available omeprazole 20 mg capsule,del ayed release 10/21 completed Not Available Not Available Not Available methylpredn isolone 4 mg tablets in a dose pack TAKE BY MOUTH DIRECTED ON INSIDE OF PACKAGE 10/17 completed Not Available Not Available Not Available albuterol sulfate HFA 90 mcg/actuati on aerosol inhaler INHALE 2 PUFFS BY MOUTH EVERY 6 HOURS NEEDED FOR WHEEZING 10/21 completed Not Available Not Available Not Available ondansetron 4 mg disintegrat ing tablet 10/17 completed Not Available Not Available Not Available naproxen 500 mg tablet TAKE 1 TABLET BY MOUTH TWICE DAILY 10/17 completed Not Available Not Available Not Available amoxicillin 875 mg-potassiu m clavulanate 125 mg tablet TAKE 1 TABLET BY MOUTH TWICE DAILY FOR 10 DAYS 10/17 completed Not Available Not Available Not Available nitrofurant oin monohydrate /macrocryst als 100 mg capsule TAKE 1 CAPSULE BY MOUTH TWICE DAILY FOR 5 DAYS 10/21 completed Not Available Not Available Not Available calcium citrate active Not Available Not Available Not Available 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 2 16:37:03 Date Recorded Body height Body mass index (BMI) Body weight Systolic blood pressure Diastolic blood pressure Provider Name and Address Organization Details Last Updated DateTime 10/17/2023 154.94 cm 38.9 kg/m2 59258.03 g 114 mm[Hg] 75 mm[Hg] Nora Rodriguez [facility] 3 10:04:03 Date Recorded Body height Body mass index (BMI) Body weight Systolic blood pressure Diastolic blood pressure Provider Name and Address Organization Details Last Updated DateTime 10/21/2024 154.94 cm 34.4 kg/m2 26137.81 g 110 mm[Hg] 76 mm[Hg] Cat Moore [facility] 4 09:59:16 Social History Question Answer Notes LastModified by Organizat ion Details LastModified Time Tobacco Smoking Status Never Smoker Nora Rodriguez [facility] 10/17/2023 09:56:49 Do You Have An Advance Directive? No Information n ot available 10/07/2022 If You Are , What Was Your Level Of Alcohol Consumption Prior To ? None Information not available 10/17/2023 How Many Years Have You Consumed Alcohol? 20 [email or web address] Information not available 10/07/2022 Are You Blind Or Do You Have Difficulty Seeing? No [email or web address] Information n ot available 01/23/2021 What Is Your Level Of Caffeine Consumption? Occasional Information not available 10/17/2023 How Much Tobacco Do You Chew? None Information not available 10/07/2022 In The 14 Days Before Symptom Onset, Have You Had Close Contact With A Laboratory-confirm ed COVID-19 While That Case Was Ill? No [email or web address] Information n ot available 01/23/2021 In The 14 Days Before Symptom Onset, Have You Had Close Contact With A Person Who Is Under Investigation For COVID-19 While That Person Was Ill? No [email or web address] Information not available 01/23/2021 Have You Been To An Area Known To Be High Risk For COVID-19? No Information not available 01/23/2021 Are You Deaf Or Do You Have Serious Difficulty Hearing? No Information not available 01/23/2021 What Type Of Diet Are You Following? SPECIFIC Information n ot available 10/17/2023 What Is The Highest Grade Or Level Of School You Have Completed Or The Highest Degree You Have Received? GP07901-8 [email or web address] Information not available 10/07/2022 Are There Any Guns Present In Your Home? No [email or web address] Information not available 10/07/2022 Have You Ever Been Counseled For Unhealthy Alcohol Use? No Information not available 10/17/2023 Do You Use Protection During Sex? No Information not available 10/07/2022 Do You Use Your Seat Belt Or Car Seat Routinely? Yes [email or web address] Information not available 01/23/2021 Do You Have Smoke And Carbon Monoxide Detectors In Your Home? Yes [email or web address] Information not available 01/23/2021 How Much Tobacco Do You Smoke? No [email or web address] Information not available 10/07/2022 Do You Use Sunscreen Routinely? Yes [email or web address] Information not available 01/23/2021 Has Tobacco Cessation Counseling Been Provided? No Information not available 10/17/2023 Have You Used IV Drugs? No [email or web address] Information not available 10/07/2022 Do You Have Difficulty Walking Or Climbing Stairs? No Information not available 10/21/2024 Sex: Female Functional Status Question Answer Note LastModified by Organizat ion Details LastModified Time Do you use any illicit or recreational drugs? No [email or web address] Information not available 01/23/2021 Do you or have you ever used any other forms of tobacco or nicotine? No Information not available 10/17/2023 What is your level of alcohol consumption? Occasional [email or web address] Information not available 01/23/2021 Are you able to walk? YESWOREST [email or web address] Information not available 01/23/2021 Are you able to care for yourself? 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 No [email or web address] Information not available 10/21/2024 What is your exercise level? Moderate [email or web address] Information not available 10/21/2024 Mental Status Question Answer Note LastModified by Organization D etails LastModified Time Do you feel stressed (tense, restless, nervous, or anxious, or unable to sleep at night)? [id number] [email or web address] Information not available 01/23/2021 Family History Relationship Description Onset Age of this Age Resolved Age Notes LastModified by Organization Details LastModified Time Mother Polyp of colon 63 [email or web address] Not available 2023 09:44:26 Mother Follicular lymphoma 70 [email or web address] Not available 2023 09:44:26 Unspecified Relation Follicular lymphoma 50 matern al cousin [email or web address] Not available 10/21/2024 09:44:26 Father Heart disease [email or web address] Not available 01/23 10:09:47 Father Diabetes mellitus [email or web address] Not available 01/23 10:09:55 Father Hypercholest erolemia [email or web address] Not available 01/23 10:10:17 Father Hypertensive disorder [email or web address] Not available 01/23 10:10:24 Maternal Grandmother Diabetes mellitus [email or web address] Not available 01/23 10:10:03 Paternal Grandmother Diabetes mellitus [email or web address] Not available 01/23 10:10:07 Paternal Aunt Diabetes mellitus [email or web address] Not available 01/23 10:10:41 Paternal Uncle Diabetes mellitus Not available 01/23 10:10:45 Paternal Grandfather Malignant neoplasm of lung [email or web address] Not available 01/23 10:11:02 Brother Genetic disease [email or web address] Not available 2023 09:44:26 Medical History Condition Response Allergies (Food, seasonal, environmental ) Y Other N Breast Cancer N Drug/Latex Allergies/Reactions Y Blood Transfusion N Dermatologic Disorders N Lung Disease N Defects or Inherited Disease N Breast Problem N Gestational Diabetes N Hematologic disorders N Anesthesia Complications N History of STI N Deep Vein Thrombosis N Polycystic ovary syndrome N Anxiety Disorder Y Autoimmune disease N Arthritis N Infertility N Polyps N Acid Reflux (GERD) Y History of abnormal pap N Cancer N Stroke N Varicosities N Neurologic/Epilepsy N Endometriosis N High Cholesterol N Headaches Y Fibromyalgia N Kidney Disease N Heart Problems N Kidney or Bladder Problems Y Thyroid Problems N GI Problems Y Eating Disorder N Anemia N Art (IVF or FET) N Psychiatric Illness N Ovarian Cancer N Diabetes N Pulmonary (TB, Asthma) N Hepatitis/Liver Disease N No Past Medical History N Eczema N Urinary Tract Infection N Abuse/Domestic Violence N Asthma Y Trauma/Violence N Depression/ depression Y Heart Disease N Pre-Eclampsia N Hypertension N Osteoporosis N Thrombophilias N Gynecological History Statement/Question Response Abnormal Pap N Date of Last Mammogram 09/24/2022 Date of LMP 12/04/2023 N On BCP's at Conception? N STIs/STDs N Was last menstrual period normal N HPV Vaccine N Duration of Flow (days) 2 Current Control Method None Age at First Child 31 Date of Last Colonoscopy Frequency of Cycle (Q days) 29 Sexually Active? Y Date of DEXA bone scan Age of first menstrual cycle 14 Date of Last Pap Smear 10/21/2024 Sexual Problems? N LMP Unknown Desired Control Method None N Obstetrics History GPAL:G 2 P 2 0 0 2 Type Value Full Term 2 Living 2 Total 2 Past Encounters Encounter ID Performer Location Encounter Start Date Encounter Closed Date Diagnosis/Indication Diagnosis SNOMED-CT Code Diagnosis ICD10 Code Diagnosis Note [id number] Stacy Bullard CNM [place] [address],[facility] [place] [address] 01/22/2021 11:42:48 01/24/2021 22:47:54 Gynecologic examination 88233078 Z01.419 [id number] Stacy Bullard CNM [place] [address],[facility] [place] [address] 10/07/2022 16:05:52 10/07/2022 17:25:53 Gynecologic examination 68391011 Z01.419 Female str ess incontinence 57089582 N39.3 rec 2 time voiding, may have referral to urology if desires [id number] DIANA Shell [place] [address] [address] 10/17/2023 09:51:09 10/17/2023 10:44:29 Gynecologic examination 05722693 Z01.419 WWEBC - declinedpa p updatedSTI testing declinedma mmogram order givencolon CA screening discussed and encouraged encouraged annual exam with [facility] in 1 yr or sooner if needed Suggested Calcium with Vitamin D daily. Patient advised to get an annual flu shot in the fall and she could obtain at [facility] or [facility]. Also to obtain TDap vaccinatio n if you have not had one in the last 10 years. Recommend yearly mammograms . Encouraged monthly self breast exams. Encourage safe sexual practices, to use condoms and limit partners if not already in a monogamous relationsh ip. Engage in daily exercise of low impact aerobic exercise 45-60 minutes 4-5 times weekly. Avoid tobacco and illicit drugs. This lifestyle behavior pattern will lead to less health conditions and longer life span. If BMI greater than 25 dietary consult advised. All questions have been answered. Patient appears to understand informatio n, but if you have any questions please call or respond to this email Screening for malignant neoplasm of breast [id number] Z12.39 [id number] DIANA Shell Shelby [address] [address] 10/21/2024 09:43:34 10/21/2024 11:22:53 Gynecologic examination [id number] Z01.419 WWEBC - declineddi scussed perimenopa usePap - Q3-5yrs per asccp guidelines unless otherwise indicatedS TI screen - declinedMa mmogram - order givenColon cancer screening - UTD/PCPRou reymundo labs - PCPRTC in 1 yr or sooner if needed Suggested Calcium with Vitamin D daily. Patient advised to get an annual flu shot in the fall and she could obtain at local pharmacy. Also to obtain TDap vaccinatio n if you have not had one in the last 10 years. Recommend yearly mammograms . Encouraged monthly self breast exams. Encourage safe sexual practices, to use condoms and limit partners if not already in a monogamous relationsh ip. Engage in regular exercise. Avoid tobacco and illicit drugs. This lifestyle behavior pattern will lead to less health conditions and longer life span. If BMI greater than 25 dietary consult advised. All questions have been answered. Screening for malignant neoplasm of breast [id number] Z12.39 Health Concerns Section Related Observation LastModified by Organization Detai ls LastModified Time None Recorded Concern Status LastModified by Organization Details LastModified Time None Recorded Advance Directives Directive N: Payers Encounter Date Sequence Insurance Name Policy Number Policy Maloney Covered Member ID Maloney Member ID Guarantor Name 01/22/2021 1 [employer] [id number] Filippo Lawton [id number] 2 Filippo Lawton 10/07/2022 1 [employer] [id number] Filippo Siemgisella [id number] 2 Filippo Lawton 10/17/2023 1 [employer] [id number] Filippohéctor Lawton [id number] 2 Filippo Lawton 10/21/2024 1 [employer] [id number] Filippo Lawton [id number] 2 Filippo Lawton Notes Date Note Type Note Provider Name and Address Organization Details Recorded Time 01/22/2021 text/html Annual GYNReport ed bypatient.Menstrual cycle:Normal menses Urinary symptoms:No hematuria; No incontinence Vulva:No genital lesion Vagina:Normal vaginal discharge Breast:No breast pain; No breast lump; No nipple discharge Sexual complaints:No sexual complaints; No pain during intercourse; Normal libido Menopausal Symptoms:No menopausal symptoms; Normal vaginal lubrication Psychological symptoms:No depression; No anxiety; No PMDDNotes:does sbe wants us, declines diagnostic mamm after mammogram was normal, ? mass in right breast under nipple,last pap 2019 Stacy Bullard, NAZANIN [address], [place], [address], [facility] 01/22/2021 14:11:27 10/07/2022 text/html Annual GYNReport ed bypatient.History:n o gynecologic complaints; no change in interval history Urinary symptoms:Stress incontinence Breast:No breast pain; No breast lump; No nipple discharge Sexual complaints:No sexual complaints; No pain during intercourse; Normal libido Menopausal Symptoms:No menopausal symptoms; Normal vaginal lubrication Psychological symptoms:No depression; No anxiety; No PMDD Preventive measures:Encourage self breast examination; Encourage regular exercise; Encourage no tobacco use; Encourage regular mammograms starting age 40Notes:declined pelvic floor pt for stress incont, mammogram recent Stacy Bullard, NAZANIN [address], [place], [address], [facility] 10/07/2022 16:56:11 10/17/2023 text/html Annual GYNReport ed bypatient.Menstrual cycle:Perimenopausa l; LMP February or May, skipping periods for the last 1 yr Urinary symptoms:No hematuria; No incontinence Vulva:No genital lesion Vagina:Normal vaginal discharge Breast:No breast pain; No breast lump; No n [id number]|2025-04-07 15:09:00|2025-04-07 15:09:00|XMS_ITS|GURVINDER MUÑOZ|External Medical Summaries|[id number]|" Clinical Summary Created on: April 07, 2025 Blanca Lawton : 1975 Sex: Female Author Organization [address] Address [address] [place] [id number] Care Team Providers [place] Bailiff Name Role Phone Unknown, Notinfile Primary Care Provider Unavail able Allergies Active Allergy Reactions Criticality Noted Date Comments Sulfa (Sulfonamide Antibiotics) Urticaria Medium 10/20 Medications citalopram (CeleXA) 20 mg tablet Take 1 tablet (20 mg total) by mouth nightly Active ZOLMitriptan (ZOMIG) 2.5 mg tablet 08/22/2019 Active cetirizine (ZyrTEC) 10 mg tablet Take 1 tablet (10 mg total) by mouth nightly Active Active Problems No known active problems Encounters Date Type Department Care Team Description 03/04/2025 4:37 PM CDT - 03/04/2025 11:59 PM CDT Hospital Encounter [facility] ([facility]) [address] [place] [id number] Discharge Disposition: Discharge to home or self care 03/04/2025 4:36 PM CDT - 03/04/2025 11:59 PM CDT Hospital Encounter [facility] ([facility]) [address] [place] [id number] Discharge Disposition: Discharge to home or self care 03/04/2025 4:30 PM CDT - 03/04/2025 11:59 PM CDT Hospital Encounter [facility] ([facility]) [address] [place] [address] Discharge Disposition: Discharge to home or self care 03/04/2025 11:15 AM CDT Ancillary Procedure [facility] [address] [place] [address] Medical Office [facility] [address] [place] [address] Chronic right shoulder pain 03/04/2025 10:40 AM CDT Office Visit [facility] [address] [place] [address] Office [facility] [address] [place] [address] Charis Cody MD Chronic right shoulder pain (Primary Dx); Tendinopathy of right rotator cuff from Last 3 Months Social History Tobacco Use Types Packs/Day Years Used Date Smoking Tobacco: Never Passive Smoke Exposure: Past Smokeless Tobacco: Never Tobacco Cessation:Counseling Given: Not Answered Comments Unknown Sex and Gender Information Value Date Recorded Sex Assigned at Not on file Legal Sex Female 11:33 AM CDT Gender Identity Female 02/28/2025 12:09 PM CDT Sexual Orientation Straight 02/28/2025 12 :09 PM CDT Obstetrics History Last Filed Vital Signs Vital Sign Reading [...] 06/16/2024 6:06 PM CDT Plan of Treatment Health Maintenance Due Date Last Done Comments Breast Cancer Screening-Mammogram 1975 Cervical Cancer Screening 1975 Colon Cancer Screening-Colonoscopy 1975 Depression Screening 1975 Hepatitis C Screening 1975 DTaP/Tdap/Td Vaccine (1 - Tdap) 1985 Hepatitis B Screening 1992 Regular Well Visit/Exam 18-64 1992 Covid-19 Vaccine ( season) 2024 09/16/2023, 10/08/2022, 12/11/2021, Additional history exists Zoster Vaccine (1 of 2) 2024 Influenza Vaccine (Season Ended) 2025 09/13/2023 Pneumococcal vaccine <65 Aged Out No longer eligible based on [...] only and have not been reviewed by [facility]. There will be no report generated by a [facility] Radiologist. Narrative RAD_PACS_[facility] - 03/04/2025 4:37 PM CDT EXAMINATION: Images For Reference Purposes Only Charis Cody MD IMG XR PROCEDURES Final Result Performing Organization Address [facility] de Phone Number RAD_[email or web address] * IR Outside Reference (03/04/2025 4:36 PM CDT) Impressions [facility]_P[facility] - 03/04/2025 4:36 PM CDT These images are for Reference purposes only and have not been reviewed by [facility]. There will be no report generated by a [facility] Radiologist. Narrative RAD_PACS_[facility] - 03/04/2025 4:36 PM CDT EXAMINATION: Images For Reference Purposes Only Charis Cody MD IMG IR PROCEDURES Final Result Performing Organization Address [facility] Phone Number RAD_[email or web address] * MSK MR Outside Reference (03/04/2025 4:30 PM CDT) Impressions RAD_PACS_[facility] - 03/04/2025 4:30 PM CDT These images are for Reference purposes only and have not been reviewed by [facility]. There will be no report generated by a [facility] Radiologist. Narrative RAD_PACS_[facility] - 03/04/2025 4:30 PM CDT EXAMINATION: Images For Reference Purposes Only Result [facility] Charis Cody MD IMG MRI PROCEDURES Final Result Performing Organization Address [facility] de Phone Number RAD_[email or web address] * POCUS LIMITED EXTREMITY (03/04/2025 11:12 AM CDT) Narrative RAD_PACS_POCUS_[facility] - 03/04/2025 11:12 AM CDT This procedure was performed and interpreted by the provider. Please refer to the provider's procedure/OR operative note for results. us Mariam Perez MD POCUS ORDERABLES Sowmya quick Result RAD_PACS_POCUS_[facility] from Last 3 Months Insurance [employer] OPEN ACCESS [place] [address] [employer] OPEN ACCESS Care Teams County Bailiff Relationship Specialty Start Date End Date Unknown, Peacenfbeulah PCP - General 06/16/24 "
== END 2025-04-07 15:06 | disposition home or self-care (01) ==
LOC: ANHIMG 15:07
PROVIDERS: PCP Emergency Medicine; Visit Provider Nurse Practitioner
DX: Z12.31 Encounter for screening mammogram for malignant neoplasm of breast (principal)
CPT/HCPCS: 77063; 77067